=== PATIENT | male | born 1995 | race Hispanic/Latino ===

== ENCOUNTER 2021-03-26 13:14 | Emergency (ER) | payer SELFPAY ==
[2021-03-26] MEDS ORDERED: dexAMETHasone 10 MG/ML VIAL ONE ×2 (14:18→15:13)
[2021-03-26] MEDS ORDERED: MORPHINE 4 MG/ML SYR ONE (14:18)
[2021-03-26] MEDS ORDERED: ONDANSETRON 4 MG/2 ML VIAL ONE (14:18)
--- NOTE | 2021-03-26 14:53 | EDPHYS ---
Physician Documentation [facility] Name: Pete Galvan Age: 26 yrs Sex: Male : 1995 Arrival Date: 03/26/2021 Time: 13:18 Bed 12 Private MD: ED Physician Car Hernandez HPI: 03/26 14:49 This 26 yrs old Male presents to ER via Ambulatory with complaints of Cough, jmm Ear Pain. 14:49 The patient or guardian reports cough. Onset: The symptoms/episode began/occurred jmm gradually, 2 week(s) ago. Modifying factors: The symptoms are alleviated by nothing, the symptoms are aggravated by nothing. This is a 26-year-old male with no chronic medical conditions presents emerged part with complaints of cough, congestion, sore throat, earache beginning approximately 2 weeks ago. Patient states his son has had similar symptoms and was recently diagnosed with RSV.. Historical: - Allergies: 14:46 No Known Allergies; iw - Home Meds: 14:46 None [Active]; iw - PMHx: 14:46 None; iw - PSHx: 14:46 None; iw - Immunization history:: Client reports having NOT received the Covid vaccine. - Social history:: Smoking status: Patient denies any tobacco usage or history of. ROS: 14:49 Constitutional: Positive for body aches, chills. jmm 14:49 ENT: Positive for ear pain, sore throat. 14:49 Respiratory: Positive for cough. 14:49 All other systems are negative. Exam: 14:49 Constitutional: This is a well developed, well nourished patient who is awake, alert, jmm and in no acute distress. Head/Face: atraumatic. Eyes: EOMI, no conjunctival erythema appreciated 14:49 Neck: Trachea midline, Supple Chest/axilla: Normal chest wall appearance and motion. Cardiovascular: Regular rate and rhythm. No edema appreciated Respiratory: Normal respirations, no respiratory distress appreciated Abdomen/GI: Non distended, soft Back: Normal ROM Skin: General appearance color normal MS/ Extremity: Moves all extremities, no obvious deformities appreciated, no edema noted to the lower extremities Neuro: Awake and alert, normal gait 14:49 ENT: TM's: erythema, that is moderate, bilaterally, Posterior pharynx: erythema, that is mild. Vital Signs: 14:45 BP 128 / 70; Pulse 89; Resp 18 S; Temp 98.9; Pulse Ox 100% on R/A; iw MDM: 14:[address] [facility] 14:51 Data reviewed: vital signs, nurses notes. Counseling: I had a detailed discussion with madonna the patient and/or guardian regarding: the historical points, exam findings, and any diagnostic results supporting the discharge/admit diagnosis, the need for outpatient follow up, to return to the emergency department if symptoms worsen or persist or if there are any questions or concerns that arise at home. ED course: Patient is alert and nontoxic in appearance in the ED, patient is not hypoxic. Patient advised to follow-up with PCP and otherwise given strict return precautions.. Administered Medications: 15:00 Drug: Rocephin (cefTRIAXone) 1 grams Route: IM; Site: right gluteus; sv 15:21 Follow up: Response: No adverse reaction sv 15:00 Drug: Decadron (dexamethasone) 10 mg Route: IM; Site: right gluteus; sv 15:21 Follow up: Response: No adverse reaction sv Disposition: 15:43 Co-signature as Attending Physician, Car Hernandez MD. rn Disposition Summary: 03/26/21 14:52 Discharge Ordered Location: Home [facility] Condition: Stable [facility] Diagnosis - Acute upper respiratory infection, unspecified [facility] - Acute serous otitis media, bilateral [facility] Followup: [facility] - With: Private Physician - When: 2 - 3 days - Reason: Recheck today's complaints, Continuance of care, Re-evaluation by your physician Discharge Instructions: - Discharge Summary Sheet [facility] - Upper Respiratory Infection, Adult [facility] Forms: - Medication Reconciliation Form [facility] - Thank You Letter [facility] - Antibiotic Education [facility] - Prescription Opioid Use [facility] Prescriptions: - albuterol sulfate 90 mcg/actuation Inhalation HFA aerosol inhaler - inhale 2 puff by INHALATION route every 4 hours; 1 Pump; Refills: 0, Product [facility] Selection Permitted - Prednisone 20 mg Oral Tablet - take 3 tablets by ORAL route once daily for 5 days; 15 tablet; Refills: 0, [facility] Product Selection Permitted - Zithromax Z-Dewayne 250 mg Oral Tablet - take 1 tablet by ORAL route as directed for 5 days Day 1 - take two (2) tablets [facility] one time. Day 2, 3, 4 , 5 take one (1) tablet once daily.; 6 tablet; Refills: 0, Product Selection Permitted Signatures: Rahel Doll, BRIAN RN Geoff Jo PA PA jmm Williams, Irene, RN RN iw Nieto, Roman, MD MD rn
--- NOTE | 2021-03-26 14:53 | ER ---
Nurse's Notes [facility] Name: Pete Galvan Age: 26 yrs Sex: Male : 1995 Arrival Date: 03/26/2021 Time: 13:18 Bed 12 Private MD: Diagnosis: Acute upper respiratory infection, unspecified;Acute serous otitis media, bilateral Presentation: 03/26 14:45 Chief complaint: Patient states: has been sick for two weeks, cough, ear pain started a iw couple days ago, son diagnosed with RSV. Coronavirus screen: Client presents with at least one sign or symptom that may indicate coronavirus-19. Ebola Screen: Patient negative for fever greater than or equal to 101.5 degrees Fahrenheit, and additional compatible Ebola Virus Disease symptoms Patient denies exposure to infectious person. Patient denies travel to an Ebola-affected area in the 21 days before illness onset. No symptoms or risks identified at this time. Initial Sepsis Screen: Does the patient meet any 2 criteria? No. Patient's initial sepsis screen is negative. Does the patient have a suspected source of infection? No. Patient's initial sepsis screen is negative. Risk Assessment: Do you want to hurt yourself or someone else? Patient reports no desire to harm self or others. Onset of symptoms was March 10, 2021. 14:45 Method Of Arrival: Ambulatory iw 14:45 Acuity: JA 4 iw Historical: - Allergies: 14:46 No Known Allergies; iw - Home Meds: 14:46 None [Active]; iw - PMHx: 14:46 None; iw - PSHx: 14:46 None; iw - Immunization history:: Client reports having NOT received the Covid vaccine. - Social history:: Smoking status: Patient denies any tobacco usage or history of. Screenin:48 Abuse screen: Denies threats or abuse. Denies injuries from another. Nutritional iw screening: No deficits noted. Tuberculosis screening: No symptoms or risk factors identified. Assessment: 14:47 General: Appears in no apparent distress. Behavior is calm, cooperative. Pain: iw Complains of pain in right ear. Neuro: Level of Consciousness is awake, alert, obeys commands. Respiratory: Reports cough that is non-productive. Derm: Skin is intact, is healthy with good turgor. 15:22 Reassessment: Patient appears in no apparent distress at this time. No changes from sv previously documented assessment. Patient and/or family updated on plan of care and expected duration. Pain level reassessed. Patient is alert, oriented x 3, equal unlabored respirations, skin warm/dry/pink. Vital Signs: 14:45 BP 128 / 70; Pulse 89; Resp 18 S; Temp 98.9; Pulse Ox 100% on R/A; iw ED Course: 13:18 Patient arrived in ED. mr 14:39 Geoff Loera PA is PHCP. [facility] 14:39 Cra Hernandez MD is Attending Physician. jmm 14:46 Triage completed. iw 14:46 Arm band placed on. iw 14:59 Rahel Doll, RN is Primary Nurse. sv 15:00 Patient has correct armband on for positive identification. Bed in low position. Door sv closed. Head of bed elevated. 15:18 No provider procedures requiring assistance completed. Patient did not have IV access iw during this emergency room visit. Administered Medications: 15:00 Drug: Rocephin (cefTRIAXone) 1 grams Route: IM; Site: right gluteus; sv 15:21 Follow up: Response: No adverse reaction sv 15:00 Drug: Decadron (dexamethasone) 10 mg Route: IM; Site: right gluteus; sv 15:21 Follow up: Response: No adverse reaction sv Outcome: 14:52 Discharge ordered by MD. [facility] 15:18 Discharged to home ambulatory. iw 15:18 Condition: good 15:18 Discharge instructions given to patient, Instructed on discharge instructions, follow up and referral plans. medication usage, Demonstrated understanding of instructions, follow-up care, medications, Prescriptions given X 2. 15:18 Patient left the ED. iw Signatures: Rahel Doll, RN RN Geoff Loera PA PA [facility] Dinorah Blunt mr Birdie Waterman RN RN iw
[2021-03-26] MEDS ORDERED: LIDOCAINE 1% MPF 2 ML AMPULE ONE (15:12)
[2021-03-26] MEDS ORDERED: CEFTRIAXONE 1000 MG/VIAL ONE (15:13)
[2021-03-26 15:45] VITALS: BP 128/70; TEMP 98.9; O2SAT 100
== END 2021-03-26 15:18 | disposition home or self-care (01) ==
LOC: ER 13:14
DX: J06.9 Acute upper respiratory infection, unspecified (principal); H65.03 Acute serous otitis media, bilateral
CPT/HCPCS: 96372; 99283; J1100; J2405

== ENCOUNTER 2021-04-08 13:41 | Emergency (ER) | payer SELFPAY ==
--- NOTE | 2021-04-08 14:22 | ER ---
Nurse's Notes [facility] Name: Pete Galvan Age: 26 yrs Sex: Male : 1995 Arrival Date: 04/08/2021 Time: 13:44 Bed Waiting Private MD: Diagnosis: Otitis media, unspecified, right ear Presentation: 04/08 14:18 Chief complaint: Patient states: Right Ear infection 2 weeks ago, still having pain to lm7 right ear. Also c/o cough. Coronavirus screen: Client denies travel out of the [place] in the last 14 days. Client presents with at least one sign or symptom that may indicate coronavirus-19. Standard/surgical mask placed on the client. Ebola Screen: Patient negative for fever greater than or equal to 101.5 degrees Fahrenheit, and additional compatible Ebola Virus Disease symptoms. Initial Sepsis Screen: Does the patient meet any 2 criteria? No. Patient's initial sepsis screen is negative. Does the patient have a suspected source of infection? No. Patient's initial sepsis screen is negative. Risk Assessment: Do you want to hurt yourself or someone else? Patient reports no desire to harm self or others. 14:18 Method Of Arrival: Ambulatory lm7 14:18 Acuity: JA 5 lm7 14:23 Onset of symptoms is unknown. lm7 Triage Assessment: 14:21 General: Appears in no apparent distress. Behavior is calm, cooperative. Pain: Denies lm7 pain. EENT: Reports pain in R ear. Historical: - Allergies: 14:21 No Known Allergies; lm7 - PMHx: 14:21 None; lm7 - Immunization history:: Client reports having NOT received the Covid vaccine. - Social history:: Smoking status: Patient denies any tobacco usage or history of. Screenin:22 Abuse screen: Denies threats or abuse. Denies injuries from another. Nutritional lm7 screening: No deficits noted. Tuberculosis screening: No symptoms or risk factors identified. Fall Risk None identified. Assessment: 14:22 Neuro: No deficits noted. Respiratory: No deficits noted. EENT: No deficits noted. lm7 Derm: No deficits noted. Vital Signs: 14:18 BP 136 / 98; Pulse 81; Resp 16; Temp 97.9; Pulse Ox 100% ; Weight 58.97 kg; Height 5 lm7 ft. 3 in. (160.02 cm); Pain 0/10; 14:18 Body Mass Index 23.03 (58.97 kg, 160.02 cm) lm7 ED Course: 13:44 Patient arrived in ED. mr 14:18 Jennifer Quinteros is Primary Nurse. lm7 14:21 Kimberlee V[facility]-C [facility] kb 14:21 Braulio Anderson MD is Attending Physician. kb 14:21 Triage completed. lm7 14:21 Arm band placed on right wrist. lm7 14:22 Patient has correct armband on for positive identification. lm7 14:22 No provider procedures requiring assistance completed. lm7 14:23 Patient did not have IV access during this emergency room visit. lm7 Administered Medications: No medications were administered Outcome: 14:22 Discharge ordered by . kb 14:22 Discharged to home lm7 14:22 Condition: stable 14:22 Discharge instructions given to patient, Instructed on discharge instructions, follow up and referral plans. medication usage, Demonstrated understanding of instructions. 14:24 Patient left the ED. lm7 Signatures: Kimberlee Vega FNP-C FNP-Sol Dinorah Blunt Laura lm7
--- NOTE | 2021-04-08 14:22 | EDPHYS ---
Physician Documentation [facility] Name: Pete Galvan Age: 26 yrs Sex: Male : 1995 Arrival Date: 04/08/2021 Time: 13:44 Bed Waiting Private MD: ED Physician Braulio Anderson HPI: 04/08 14:57 This 26 yrs old Male presents to ER via Ambulatory with complaints of Ear Pain.kb 14:57 The patient presents with pain. The complaints affect the right ear. Onset: The kb symptoms/episode began/occurred 1 month(s) ago. The patient has not experienced similar symptoms in the past. The patient has not recently seen a physician. 14:59 Modifying factors: The symptoms are alleviated by nothing, the symptoms are aggravated kb by nothing. Associated signs and symptoms: Pertinent positives: cough, Pertinent negatives: fever, lightheadedness, nausea, rhinorrhea, sinus trouble, shortness of breath, sore throat, tinnitus, vertigo, vomiting. Severity of symptoms: At their worst the symptoms were moderate in the emergency department the symptoms are unchanged. Pt ports right ear pain for about a month. States when it started he also had a cough. He came to the ER and was prescribed Zithromax for an ear infection. States cough went away but ear pain never subsided.. Historical: - Allergies: 14:21 No Known Allergies; lm7 - PMHx: 14:21 None; lm7 - Immunization history:: Client reports having NOT received the Covid vaccine. - Social history:: Smoking status: Patient denies any tobacco usage or history of. ROS: 14:57 Constitutional: Negative for fever, chills, and weight loss. kb 14:57 ENT: Positive for ear pain. 14:57 Respiratory: Positive for cough, Negative for dyspnea on exertion, hemoptysis, orthopnea, pleurisy, shortness of breath, sputum production, wheezing. 14:57 All other systems are negative. Exam: 14:56 Constitutional: This is a well developed, well nourished patient who is awake, alert, kb and in no acute distress. Head/Face: Normocephalic, atraumatic. Respiratory: Respirations even and unlabored. No increased work of breathing, no retractions or nasal flaring. Skin: Warm, dry with normal turgor. Normal color. MS/ Extremity: Pulses equal, no cyanosis. Neurovascular intact. Full, normal range of motion. Neuro: Awake and alert, GCS 15, oriented to person, place, time, and situation. Moves all extremities. Normal gait. Psych: Awake, alert, with orientation to person, place and time. Behavior, mood, and affect are within normal limits. 14:56 ENT: External ear(s): are unremarkable, Ear canal(s): are normal, TM's: bulging, on the right, erythema, that is moderate, on the right. Vital Signs: 14:18 BP 136 / 98; Pulse 81; Resp 16; Temp 97.9; Pulse Ox 100% ; Weight 58.97 kg; Height 5 lm7 ft. 3 in. (160.02 cm); Pain 0/10; 14:18 Body Mass Index 23.03 (58.97 kg, 160.02 cm) lm7 MDM: 14:21 Patient medically screened. 14:56 Data reviewed: vital signs, nurses notes. Data interpreted: Pulse oximetry: on room air kb is 100 %. Interpretation: normal. Counseling: I had a detailed discussion with the patient and/or guardian regarding: the historical points, exam findings, and any diagnostic results supporting the discharge/admit diagnosis, the need for outpatient follow up, a family practitioner, to return to the emergency department if symptoms worsen or persist or if there are any questions or concerns that arise at home. Administered Medications: No medications were administered Disposition Summary: 04/08/21 14:22 Discharge Ordered Location: Home kb Condition: Stable kb Diagnosis - Otitis media, unspecified, right ear kb Followup: kb - With: Emergency Department - When: As needed - Reason: Worsening of condition Followup: kb - With: Private Physician - When: 2 - 3 days - Reason: Recheck today's complaints, Continuance of care, Re-evaluation by your physician Discharge Instructions: - Discharge Summary Sheet kb - Otitis Media, Adult, [id number] kb Forms: - Medication Reconciliation Form kb - Thank You Letter kb - Antibiotic Education kb - Prescription Opioid Use kb Prescriptions: - Amoxicillin 875 mg Oral Tablet - take 1 tablet by ORAL route every 12 hours for 10 days; 20 tablet; Refills: 0, kb Product Selection Permitted Addendum: 04/11/2021 07:08 Co-signature as Attending Physician, Braulio Anderson MD I agree with the assessment and k dr plan of care. Signatures: Kimberlee Vega, ELECTRON[employer] DETAIL DRAFTSPERSON-C [employer]LECT[employer] DETAIL DRAFTSPERSON-CkBraulio Bagley MD MD [facility] Jennifer Quinteros lm7
[2021-04-08 14:43] VITALS: BP 136/98; TEMP 97.9; O2SAT 100
== END 2021-04-08 14:24 | disposition home or self-care (01) ==
LOC: ER 13:41
DX: H66.91 Otitis media, unspecified, right ear (principal)
CPT/HCPCS: 99281